=== PATIENT | female | born 1980 | race Two or more races ===

== ENCOUNTER 2020-07-05 22:15 | Inpatient (IN) | payer SELFPAY ==
[~2020-07-05] VITALS: Ht 149.9 cm; Wt 63.7 kg
[2020-07-05] MEDS ORDERED: ACETAMINOPHEN 325 MG TABLET. PO PRN (22:30)
[2020-07-05 22:49] LABS: BILIRUBIN,URINE NEGATIVE (NEG); CLARITY,URINE CLEAR; COLOR,URINE YELLOW; NITRITE,URINE NEGATIVE (NEG); PH,URINE 7.5 (<5.0-8.0); PROTEIN,URINE NEGATIVE (NEG-TRACE); UROBILINOGEN,URINE 0.2 mg/dL (0.2 mg/dL)
[2020-07-05 22:54] LABS: SQUAMOUS EPITHELIAL CELL,UR FEW /LPF
[2020-07-05 22:55] LABS: BACTERIA,URINE FEW /HPF (0-FEW); RBC,URINE 0 /HPF (0-2); WBC,URINE 0 /HPF (0-4)
[2020-07-06] VITALS (10 sets, daily range): BP systolic 75–114; BP diastolic 51–78
[2020-07-06] MEDS ORDERED: hydrOXYzine 25 MG TABLET PO PRN (02:15)
[2020-07-06] MEDS: IV RINGERS,LACTATED 1000ML 1,000 ML IV SCH ×7 (02:50→23:25)
[2020-07-06] MEDS ORDERED: IV RINGERS,LACTATED 1000ML 1,000 ML IV SCH (10:12)
[2020-07-06] MEDS ORDERED: LIDOCAINE 1% PF 30 ML VIAL. INJ PRN (10:15)
[2020-07-06] MEDS ORDERED: CITRIC ACID/SODIUM CITRATE 30 ML SOLUTION. PO ONE (10:15)
[2020-07-06] MEDS ORDERED: BUTORPHANOL 2 MG/ML VIAL. IVP PRN ×2 (10:15)
[2020-07-06] MEDS ORDERED: TERBUTALINE 1 MG/ML VIAL. SQ PRN (10:15)
[2020-07-06] MEDS ORDERED: OXYTOCIN 30 UNIT/500 ML PREMIX 500 ML IV PRN ×2 (10:15)
[2020-07-06] MEDS ORDERED: ONDANSETRON PF 4 MG/2 ML VIAL. IV PRN (10:30)
[2020-07-06] MEDS ORDERED: 0.9 % SODIUM CHLORIDE 10 ML DISP.SYRIN. IV PRN (10:30)
[2020-07-06] MEDS ORDERED: diphenhydrAMINE ORAL ELIXIR 12.5 MG/5 ML ML PO PRN (10:30)
[2020-07-06] MEDS ORDERED: TDaP (Adacel) per PROTOCOL. MC PRN ×2 (10:30→19:45)
[2020-07-06] MEDS ORDERED: MMR per PROTOCOL. MC PRN ×2 (10:30→19:45)
--- NOTE | 2020-07-06 10:31 | PDOC ---
GENERAL General: 40yrs old lady from [place] came here 3 weeks ago. Has had PN care at [facility]. Patient came in with Pain and contractions. Patient is Previous done in [facility]. ALLERGIES Allergies: Allergies Coded Allergies Type Severity Reaction Last Updated Verified No Known Drug Allergies 07/06/20 No MEDS Medications: Current Medications Medications (Trade) Dose Ordered Sig/Qi Route PRN Reason Start Time Stop Time Status Last Admin Dose Admin Ringer's Solution 1,000 ml @ 125 mls/hr Q8H IV 07/05/20 22:17 07/06/20 07:23 Hydroxyzine HCl (Atarax) 50 mg PRN Q6HRS PRN PO ITCHING 07/06/20 02:15 07/06/20 02:51 LAB Lab: Laboratory Tests Test 07/05/20 22:30 Urine Collection Type Unknown Urine Color Yellow Urine Clarity Clear Urine pH 7.5 (<5.0-8.0) Urine Specific [place] <=1.005 (1.000-1.030) Urine Protein Negative mg/dL (NEG-TRACE) Urine Glucose (UA) Negative mg/dL (NEG) Urine Ketones (Stick) Negative mg/dL (NEG) Urine Blood Negative (NEG) Urine Nitrite Negative (NEG) Urine Bilirubin Negative (NEG) Urine Urobilinogen Dipstick 0.2 mg/dL (0.2 mg/dL) Urine Leukocyte Esterase Negative (NEG) Urine RBC 0 /HPF (0-2) Urine WBC 0 /HPF (0-4) Urine Squamous Epithelial Cells Few /LPF Urine Bacteria Few /HPF (0-FEW) Urine Mucus Slight /LPF ASSESSMENT & PLAN A&P Vital signs stable. 38 weeks .Patient in Active Labor. Cervix Dilated to 3 cm. Vertex high. Explained to Patient about Repeat and Patient willing for Surgery at this time. Justifications for Admission Other Justification MELODY BOATENG MD Jul 06, 2020 10:31
[2020-07-06 10:42] LABS: BASO # 0.1 x10^3/uL (0.0-0.2); BASO % 1 % (0-3); EOS # 0.1 x10^3/uL (0.0-0.7); EOS % 0 % (0-3); HEMATOCRIT 36.3 % (36.0-47.0); HEMOGLOBIN 12.3 g/dL (12.0-15.5); LYMPH # 2.6 x10^3/uL (1.0-4.8); LYMPH % 19 % (24-48); MEAN CORPUSCULAR HEMOGLOBIN 29 pg (25-35); MEAN CORPUSCULAR HGB CONC 34 g/dL (31-37); MEAN CORPUSCULAR VOLUME 85 fL (79-100); MONO # 0.8 x10^3/uL (0.0-1.1); MONO % 6 % (0-9); NEUT # 9.9 x10^3/uL (1.8-7.7); NEUT % 74 % (31-73); PLATELET COUNT 228 x10^3/uL (140-400); RED BLOOD COUNT 4.27 x10^6/uL (3.50-5.40); RED CELL DISTRIBUTION WIDTH 14.5 % (11.5-14.5); WHITE BLOOD COUNT 13.4 x10^3/uL (4.0-11.0)
[2020-07-06] MEDS ORDERED: OXYTOCIN 10 UNIT/ML VIAL. ONE (10:45)
[2020-07-06] MEDS ORDERED: MORPHINE PF 10 MG/10 ML AMPUL. ONE (10:46)
[2020-07-06] MEDS ORDERED: fentaNYL PF VIAL 100 MCG/2 ML VIAL ONE (10:47)
[2020-07-06] MEDS ORDERED: ePHEDrine PF IN SALINE 50 MG/10 ML SYRINGE. IV ONE (12:20)
[2020-07-06] MEDS ORDERED: PHENYLEPHRINE in 0.9% NACL PF 1 MG/10 ML SYRINGE. IV ONE ×2 (12:20→16:50)
[2020-07-06] MEDS ORDERED: ONDANSETRON PF 4 MG/2 ML VIAL. ONE ×2 (12:29→19:16)
--- NOTE | 2020-07-06 13:14 | OP ---
DATE OF SURGERY: PREOPERATIVE DIAGNOSES: 2, para 1, premature labor, previous section. POSTOPERATIVE DIAGNOSES: 2, para 1, premature labor, previous section. OPERATION PERFORMED: Repeat lower segment . FINISH MENDER: Assisted by Dr. Gonzalez. OPERATIVE PROCEDURE: The patient was taken to the operating room and spinal block was given. The patient was kept in a dorsal supine position. Nguyen catheter introduced into bladder for continuous bladder drainage. Lower abdomen was prepped and draped in the usual manner. A Pfannenstiel incision was made over the area of the previous scar. Abdomen opened in layers and the bladder flap peritoneum was dissected. Bladder was pushed way down the lower segment of the uterus. An incision was made on the uterus and was extended on either side using index fingers. A live female infant weighing 5 pounds 3 ounce was delivered at 12:00 noon on 07/06/2020 with the score of 9, 9 and 9 without any problem. Cord was clamped and cut. Cord blood was taken. Placenta removed spontaneous. No hemorrhage noted. Uterus sutured in 2 layers using 0 chromic catgut sutures. Reperitonealization was done with continuous 0 chromic catgut sutures. Uterus placed in the abdominal cavity. All the blood clots in the pelvic cavity were removed. Abdomen closed in layers using continuous 0 chromic catgut sutures for the peritoneum, the muscle, the fascia, 3-0 plain continuous sutures applied for subcutaneous tissue and 3-0 Vicryl subcutaneous sutures were placed, a pressure dressing was given. The patient was sent to the recovery room in good condition. No complications encountered at time of the procedure. Estimated blood loss about 400 mL. Postoperative condition was stable. Baby was referred to water regulator and valve repairer for further care and treatment. Mother tolerated the delivery well. No complications at this time. MELODY BOATENG MD DR: MICHELLE/chasidy JOB#: [id number] / [id number]
[2020-07-06 14:37] LABS: HEMATOCRIT 23.6 % (36.0-47.0); HEMOGLOBIN 7.8 g/dL (12.0-15.5); RED BLOOD COUNT 2.75 x10^6/uL (3.50-5.40); RED CELL DISTRIBUTION WIDTH 14.6 % (11.5-14.5); WHITE BLOOD COUNT 19.4 x10^3/uL (4.0-11.0)
[2020-07-06] MEDS ORDERED: SUCCINYLCHOLINE 200 MG/10 ML VIAL. ONE (16:49)
[2020-07-06] MEDS ORDERED: KETAMINE HCL IN NACL, ISO-OSM 50 MG/5 ML SYRINGE ONE (16:49)
[2020-07-06] MEDS ORDERED: PROPOFOL 10 MG/ML (20ML) VIAL. IV ONE (16:50)
[2020-07-06] MEDS ORDERED: LIDOCAINE 2% PF 5 ML VIAL. ONE (16:50)
[2020-07-06] MEDS ORDERED: ETOMIDATE 20 MG/10 ML VIAL. IV ONE (16:55)
[2020-07-06] MEDS: FERROUS SULFATE 325 MG TABLET. PO SCH (17:00)
[2020-07-06] MEDS ORDERED: MIDAZOLAM HCL/PF 2 MG/2 ML VIAL. ONE ×2 (17:07)
[2020-07-06] MEDS ORDERED: GLYCOPYRROLATE 1 MG/5 ML VIAL. ONE (17:08)
[2020-07-06] MEDS ORDERED: SEVOFLURANE > 120 MINUTES. IH ONE (17:09)
--- NOTE | 2020-07-06 17:26 | PDOC ---
GENERAL General: Patient is Post Patient has abdominal pain. No vaginal bleeding. VITAL SIGNS Vital Signs/I&O: Vital Signs Date Time Temp Pulse Resp B/P (MAP) Pulse Ox O2 Delivery O2 Flow Rate FiO2 07/06/20 17:15 99.4 116 20 103/60 99.4 ALLERGIES Allergies: Allergies Coded Allergies Type Severity Reaction Last Updated Verified No Known Drug Allergies 07/06/20 No MEDS Medications: Current Medications Medications (Trade) Dose Ordered Sig/Qi Route PRN Reason Start Time Stop Time Status Last Admin Dose Admin Ringer's Solution 1,000 ml @ 125 mls/hr Q8H IV 07/05/20 22:17 07/06/20 14:42 Hydroxyzine HCl (Atarax) 50 mg PRN Q6HRS PRN PO ITCHING 07/06/20 02:15 07/06/20 02:51 Cefazolin Sodium/ Dextrose 50 ml @ 100 mls/hr 1X ONCE IV 07/06/20 10:15 07/06/20 10:44 DC 07/06/20 11:03 Citric Acid/ Sodium Citrate (Bicitra) 30 ml 1X ONCE PO 07/06/20 10:15 07/06/20 10:25 DC 07/06/20 11:04 LAB Lab: Laboratory Tests Test 07/05/20 22:30 07/06/20 02:40 07/06/20 10:21 07/06/20 11:10 Urine Collection Type Unknown Urine Color Yellow Urine Clarity Clear Urine pH 7.5 (<5.0-8.0) Urine Specific [place] <=1.005 (1.000-1.030) Urine Protein Negative mg/dL (NEG-TRACE) Urine Glucose (UA) Negative mg/dL (NEG) Urine Ketones (Stick) Negative mg/dL (NEG) Urine Blood Negative (NEG) Urine Nitrite Negative (NEG) Urine Bilirubin Negative (NEG) Urine Urobilinogen Dipstick 0.2 mg/dL (0.2 mg/dL) Urine Leukocyte Esterase Negative (NEG) Urine RBC 0 /HPF (0-2) Urine WBC 0 /HPF (0-4) Urine Squamous Epithelial Cells Few /LPF Urine Bacteria Few /HPF (0-FEW) Urine Mucus Slight /LPF White Blood Count 13.4 x10^3/uL (4.0-11.0) H Red Blood Count 4.27 x10^6/uL (3.50-5.40) Hemoglobin 12.3 g/dL (12.0-15.5) Hematocrit 36.3 % (36.0-47.0) Mean Corpuscular Volume 85 fL (79-100) Mean Corpuscular Hemoglobin 29 pg (25-35) Mean Corpuscular Hemoglobin Concent 34 g/dL (31-37) Red Cell Distribution Width 14.5 % (11.5-14.5) Platelet Count 228 x10^3/uL (140-400) Neutrophils (%) (Auto) 74 % (31-73) H Lymphocytes (%) (Auto) 19 % (24-48) L Monocytes (%) (Auto) 6 % (0-9) Eosinophils (%) (Auto) 0 % (0-3) Basophils (%) (Auto) 1 % (0-3) Neutrophils # (Auto) 9.9 x10^3/uL (1.8-7.7) H Lymphocytes # (Auto) 2.6 x10^3/uL (1.0-4.8) Monocytes # (Auto) 0.8 x10^3/uL (0.0-1.1) Eosinophils # (Auto) 0.1 x10^3/uL (0.0-0.7) Basophils # (Auto) 0.1 x10^3/uL (0.0-0.2) SARS-CoV-2 Antigen (Rapid) Negative (NEGATIVE) Treponema pallidum Antibody Nonreactive (Nonreactive) Hepatitis B Surface Antigen Nonreactive (Nonreactive) HIV (1&2) Antibody Screen Nonreactive (Nonreactive) Test 07/06/20 14:28 White Blood Count 19.4 x10^3/uL (4.0-11.0) H Red Blood Count 2.75 x10^6/uL (3.50-5.40) L Hemoglobin 7.8 g/dL (12.0-15.5) #L Hematocrit 23.6 % (36.0-47.0) L Mean Corpuscular Volume 86 fL (79-100) Mean Corpuscular Hemoglobin 28 pg (25-35) Mean Corpuscular Hemoglobin Concent 33 g/dL (31-37) Red Cell Distribution Width 14.6 % (11.5-14.5) H Platelet Count 195 x10^3/uL (140-400) Laboratory Tests 07/06/20 02:40 07/06/20 14:28 ASSESSMENT & PLAN A&P BP70/60 Pulse 112 Hg 7.8 2 units Blood ordered. Abdomen Distended . Explained to patient about Postop Bleed in Abdomen. Will do Laparotomy. Discussed With Dr Marcus who will be assisting for Surgery. Justifications for Admission Other Justification MELODY BOATENG MD Jul 06, 2020 17:26
[2020-07-06] MEDS ORDERED: ceFAZolin SODIUM IV Push 1 GM VIAL. IVP ONE (17:56)
[2020-07-06] MEDS ORDERED: ROCURONIUM 50 MG/5 ML VIAL. ONE (18:00)
[2020-07-06] MEDS ORDERED: ALBUMIN HUMAN 5% 500 ML IV ONE ×2 (18:20→18:45)
[2020-07-06] MEDS ORDERED: METHYLENE BLUE 0.5% 10ml AMPULE. ONE (18:20)
[2020-07-06] MEDS ORDERED: NEOSTIGMINE METHYLSULFATE 5 MG/5 ML SYRINGE. ONE (18:44)
--- NOTE | 2020-07-06 19:30 | PDOC ---
GENERAL General: Patient taken for Laparotomy VITAL SIGNS Vital Signs/I&O: Vital Signs Date Time Temp Pulse Resp B/P (MAP) Pulse Ox O2 Delivery O2 Flow Rate FiO2 07/06/20 17:15 99.4 116 20 103/60 99.4 ALLERGIES Allergies: Allergies Coded Allergies Type Severity Reaction Last Updated Verified No Known Drug Allergies 07/06/20 No MEDS Medications: Current Medications Medications (Trade) Dose Ordered Sig/Qi Route PRN Reason Start Time Stop Time Status Last Admin Dose Admin Ringer's Solution 1,000 ml @ 125 mls/hr Q8H IV 07/05/20 22:17 07/06/20 14:42 Hydroxyzine HCl (Atarax) 50 mg PRN Q6HRS PRN PO ITCHING 07/06/20 02:15 07/06/20 02:51 Cefazolin Sodium/ Dextrose 50 ml @ 100 mls/hr 1X ONCE IV 07/06/20 10:15 07/06/20 10:44 DC 07/06/20 11:03 Citric Acid/ Sodium Citrate (Bicitra) 30 ml 1X ONCE PO 07/06/20 10:15 07/06/20 10:25 DC 07/06/20 11:04 LAB Lab: Laboratory Tests Test 07/05/20 22:30 07/06/20 02:40 07/06/20 10:21 07/06/20 11:10 Urine Collection Type Unknown Urine Color Yellow Urine Clarity Clear Urine pH 7.5 (<5.0-8.0) Urine Specific [place] <=1.005 (1.000-1.030) Urine Protein Negative mg/dL (NEG-TRACE) Urine Glucose (UA) Negative mg/dL (NEG) Urine Ketones (Stick) Negative mg/dL (NEG) Urine Blood Negative (NEG) Urine Nitrite Negative (NEG) Urine Bilirubin Negative (NEG) Urine Urobilinogen Dipstick 0.2 mg/dL (0.2 mg/dL) Urine Leukocyte Esterase Negative (NEG) Urine RBC 0 /HPF (0-2) Urine WBC 0 /HPF (0-4) Urine Squamous Epithelial Cells Few /LPF Urine Bacteria Few /HPF (0-FEW) Urine Mucus Slight /LPF White Blood Count 13.4 x10^3/uL (4.0-11.0) H Red Blood Count 4.27 x10^6/uL (3.50-5.40) Hemoglobin 12.3 g/dL (12.0-15.5) Hematocrit 36.3 % (36.0-47.0) Mean Corpuscular Volume 85 fL (79-100) Mean Corpuscular Hemoglobin 29 pg (25-35) Mean Corpuscular Hemoglobin Concent 34 g/dL (31-37) Red Cell Distribution Width 14.5 % (11.5-14.5) Platelet Count 228 x10^3/uL (140-400) Neutrophils (%) (Auto) 74 % (31-73) H Lymphocytes (%) (Auto) 19 % (24-48) L Monocytes (%) (Auto) 6 % (0-9) Eosinophils (%) (Auto) 0 % (0-3) Basophils (%) (Auto) 1 % (0-3) Neutrophils # (Auto) 9.9 x10^3/uL (1.8-7.7) H Lymphocytes # (Auto) 2.6 x10^3/uL (1.0-4.8) Monocytes # (Auto) 0.8 x10^3/uL (0.0-1.1) Eosinophils # (Auto) 0.1 x10^3/uL (0.0-0.7) Basophils # (Auto) 0.1 x10^3/uL (0.0-0.2) SARS-CoV-2 Antigen (Rapid) Negative (NEGATIVE) Treponema pallidum Antibody Nonreactive (Nonreactive) Hepatitis B Surface Antigen Nonreactive (Nonreactive) HIV (1&2) Antibody Screen Nonreactive (Nonreactive) Test 07/06/20 14:28 White Blood Count 19.4 x10^3/uL (4.0-11.0) H Red Blood Count 2.75 x10^6/uL (3.50-5.40) L Hemoglobin 7.8 g/dL (12.0-15.5) #L Hematocrit 23.6 % (36.0-47.0) L Mean Corpuscular Volume 86 fL (79-100) Mean Corpuscular Hemoglobin 28 pg (25-35) Mean Corpuscular Hemoglobin Concent 33 g/dL (31-37) Red Cell Distribution Width 14.6 % (11.5-14.5) H Platelet Count 195 x10^3/uL (140-400) Laboratory Tests 07/06/20 02:40 07/06/20 14:28 ASSESSMENT & PLAN A&P Under GA Laparotomy Right side Salpingectomy and Uterine Artery Ligation and Evacuation of Blood Clots Right side Broad Ligament area and Suturing done. EBL 1500cc. Assisted by . Justifications for Admission Other Justification MELODY BOATENG MD Jul 06, 2020 19:30
[2020-07-06] MEDS ORDERED: ONDANSETRON PF 4 MG/2 ML VIAL. IVP PRN (19:45)
[2020-07-06 20:14] LABS: ART BE ISTAT -7 mmol/L (0-3); ART GLUC ISTAT 118 mg/dL (70-99); ART HCO3 ISTAT 20 mmol/L (21-28); ART HCT ISTAT 23 % (36-40); ART HGB ISTAT 7.8 g/dL (12-15); ART ION CA ISTAT 1.04 mmol/L (1.13-1.32); ART K ISTAT 3.5 mmol/L (3.5-5.0); ART NA ISTAT 142 mmol/L (135-145); ART PCO2 ISTAT 38 mmHg (35-45); ART PH ISTAT 7.32 (7.35-7.45); ART PO2 ISTAT 217 mmHg (75-100); ART SAT O2 SAT 100 % (95-99); ART TCO2 ISTAT 21 mmol/L (21-32); CORRECTED PCO2 38 mmHg; CORRECTED PH 7.32; CORRECTED PO2 218 mmHg
--- NOTE | 2020-07-06 21:30 | OP ---
DATE OF SURGERY: PREOPERATIVE DIAGNOSIS: Post section bleeding and hematoma. POSTOPERATIVE DIAGNOSIS: Broad ligament hematoma. ROCK SPLITTER: César Marcus MD DESCRIPTION OF PROCEDURE: The patient was taken to the operating room under general anesthesia. The patient was placed in a dorsal supine position. The patient received 4 units of blood prior to the surgery and Nguyen catheter introduced into the bladder for continuous bladder drainage. Lower abdomen was prepped and draped in the usual manner. Incision was made over the area of the previous scar. Abdomen opened in layers and visualization of the pelvic structures revealed uterus showing some small fibroids and a large hematoma on the right side broad ligament area. Right ovary appears normal. The right tube was dilated and the hematoma extending downwards towards the cul-de-sac on the right side below the broad ligament. The left side tube, ovary, and broad ligament intact and normal. Uterine incision and suturing appears intact. No bleeding from the incision area. The right side fallopian tube was excised as there was bleeding right beneath it and suturing was done. The mesosalpinx area was also sutured first and evacuation of the hematoma was done and extended a little deeper and this was evacuated as well and the suturing was done. The uterine artery on the right side was ligated first and then all the evacuation of the blood clots done and suturing of the broad ligament area. After the suturing, there was no active bleeding seen and also there was reduction in the size of the hematoma and there is no bleeding encountered on the left side at all and it is not extending anywhere else and there is no other active bleeding seen. Hence, at the sutured pedicle area was applied and after this, abdomen was closed in layers using continuous 0 chromic catgut sutures for the peritoneum, the muscle, and the fascia, 3-0 Vicryl continuous sutures applied for subcutaneous tissue, and a pressure dressing was given and the patient was sent to the recovery room in good condition. The estimated blood loss during the time of surgery was about 1500 mL. Postoperative condition is stable. The vital signs are stable at this time. The needle, instrument, and sponge count were correct at the end of the procedure. She will be sent to ICU for observation for 24 hours and then further treatment. MELODY BOATENG MD DR: MICHELLE/chasidy JOB#: [id number] / [id number]
--- NOTE | 2020-07-06 22:00 | NUR ---
Patient admitted from PACU. Patient transferred to ICU bed, placed on monitor, arterial line connected with no problems. Patient on room air, VSS. Patient last unit of blood just finished flushing in. Surgical dressing on abdomen has small amount of shadowing- marked with pen. No vaginal or any other bleeding found upon head to toe assessment. Cytology Laboratory Manager used for patient. Understands POC, does not have any complaints at this time. Able to orient to call light and room surroundings. Patient called own family member on personal cell phone due to language barriers. OB nurse brought chart and belongings down. *An additional unit was on hand in PACU, given to this RN with orders to transfuse if Hgb just drawn was 7.5 or less. Hgb came back at 10.1. Blood bank was called, since the unit was going to at 2200 it was discarded in red bag.
[2020-07-07] VITALS (15 sets, daily range): BP systolic 89–114; BP diastolic 49–60
[2020-07-07 00:06] LABS: HEMATOCRIT 27.5 % (36.0-47.0); HEMOGLOBIN 9.3 g/dL (12.0-15.5); RED BLOOD COUNT 3.2 x10^6/uL (3.50-5.40); RED CELL DISTRIBUTION WIDTH 14.4 % (11.5-14.5); WHITE BLOOD COUNT 13.7 x10^3/uL (4.0-11.0)
[2020-07-07] MEDS: IV RINGERS,LACTATED 1000ML 1,000 ML IV SCH ×6 (02:12→21:22)
[2020-07-07 04:28] LABS: HEMATOCRIT 26.4 % (36.0-47.0)
--- NOTE | 2020-07-07 05:00 | NUR ---
Efra 0400 HH from Paty with no complications. A few minutes after drawing labs, paty wave was flat. Attempted to flush line, could no longer get any blood return. Paty repositioned whilst trying to get blood return and flush. Patient then complained of pain in the area. Paty discontinued, pressure held, bandage applied over site.
[2020-07-07] MEDS: FERROUS SULFATE 325 MG TABLET. PO SCH ×2 (08:00→16:53)
--- NOTE | 2020-07-07 08:48 | PDOC ---
GENERAL General: Patient alert Has fever this am. Abdomen soft. Not much vaginal Bleeding. VITAL SIGNS Vital Signs/I&O: Vital Signs Date Time Temp Pulse Resp B/P (MAP) Pulse Ox O2 Delivery O2 Flow Rate FiO2 07/07/20 08:00 Room Air 07/07/20 06:00 75 16 97/49 (65) 95 07/07/20 04:00 98.7 98.7 07/06/20 20:21 2 I & O 07/06/20 07/06/20 07/07/20 15:00 23:00 07:00 Intake Total 711 ml 713 ml Output Total 1450 ml 855 ml Balance -739 ml -142 ml ALLERGIES Allergies: Allergies Coded Allergies Type Severity Reaction Last Updated Verified No Known Drug Allergies 07/06/20 No MEDS Medications: Current Medications Medications (Trade) Dose Ordered Sig/Qi Route PRN Reason Start Time Stop Time Status Last Admin Dose Admin Ringer's Solution 1,000 ml @ 125 mls/hr Q8H IV 07/06/20 10:12 07/07/20 07:12 Cefazolin Sodium/ Dextrose 50 ml @ 100 mls/hr 1X ONCE IV 07/06/20 10:15 07/06/20 10:44 DC 07/06/20 11:03 Citric Acid/ Sodium Citrate (Bicitra) 30 ml 1X ONCE PO 07/06/20 10:15 07/06/20 10:25 DC 07/06/20 11:04 Ringer's Solution 1,000 ml @ 125 mls/hr Q8H IV 07/06/20 10:12 07/06/20 23:25 LAB Lab: Laboratory Tests Test 07/06/20 10:21 07/06/20 11:10 07/06/20 14:28 07/06/20 19:23 SARS-CoV-2 Antigen (Rapid) Negative (NEGATIVE) Treponema pallidum Antibody Nonreactive (Nonreactive) Hepatitis B Surface Antigen Nonreactive (Nonreactive) HIV (1&2) Antibody Screen Nonreactive (Nonreactive) White Blood Count 19.4 x10^3/uL (4.0-11.0) H Red Blood Count 2.75 x10^6/uL (3.50-5.40) L Hemoglobin 7.8 g/dL (12.0-15.5) #L Hematocrit 23.6 % (36.0-47.0) L Mean Corpuscular Volume 86 fL (79-100) Mean Corpuscular Hemoglobin 28 pg (25-35) Mean Corpuscular Hemoglobin Concent 33 g/dL (31-37) Red Cell Distribution Width 14.6 % (11.5-14.5) H Platelet Count 195 x10^3/uL (140-400) POC Hemoglobin (Calculated) 7.8 g/dL (12-15) L POC Hematocrit 23 % (36-40) L POC Arterial pH 7.32 (7.35-7.45) L Arterial Blood pH (Temp corrected) 7.32 POC Arterial pCO2 38 mmHg (35-45) Arterial Blood pCO2 (Temp correct) 38 mmHg POC Arterial pO2 217 mmHg (75-100) H Arterial Blood pO2 (Temp corrected) 218 mmHg POC Arterial HCO3 20 mmol/L (21-28) L POC Arterial Total CO2 21 mmol/L (21-32) Arterial Bld O2 Saturation (Measur) 100 % (95-99) H POC Arterial Blood Base Excess -7 mmol/L (0-3) L POC FiO2 56.0 POC Sodium 142 mmol/L (135-145) POC Potassium 3.5 mmol/L (3.5-5.0) Glucose Level 118 mg/dL (70-99) H POC Ionized Calcium (José) 1.04 mmol/L (1.13-1.32) L Test 07/06/20 20:30 07/07/20 00:01 07/07/20 04:20 Hemoglobin 10.1 g/dL (12.0-15.5) L 9.3 g/dL (12.0-15.5) L 9.0 g/dL (12.0-15.5) L White Blood Count 13.7 x10^3/uL (4.0-11.0) H Red Blood Count 3.20 x10^6/uL (3.50-5.40) L Hematocrit 27.5 % (36.0-47.0) L 26.4 % (36.0-47.0) L Mean Corpuscular Volume 86 fL (79-100) Mean Corpuscular Hemoglobin 29 pg (25-35) Mean Corpuscular Hemoglobin Concent 34 g/dL (31-37) 34 g/dL (31-37) Red Cell Distribution Width 14.4 % (11.5-14.5) Platelet Count 104 x10^3/uL (140-400) L Laboratory Tests 07/06/20 14:28 07/06/20 20:30 07/07/20 00:01 07/07/20 04:20 Laboratory Tests 07/06/20 19:23 ASSESSMENT & PLAN A&P Lochia normal. Abdomen soft. Has abdominal Pain. Patient on Antibiotics. Justifications for Admission Other Justification MELODY BOATENG MD Jul 07, 2020 08:48
--- NOTE | 2020-07-07 10:16 | NUR ---
SS following for discharge planning. SS reviewed pt chart and discussed with pt RN. Pt is from home and is currently on room air. Pt had pre[facility]linh care at [facility]. Pt is self pay. Med Assist following. Pt had and is currently on IV Cefazolin. Pt has surgery on 07/06/2020 due to bleeding. Pt to transfer out of ICU today. Discharge plan is to home when medically ready. SS will continue to follow.
[2020-07-07] MEDS: ceFAZolin SODIUM IV Push 1 GM VIAL. IVP SCH ×2 (10:31→15:23)
[2020-07-07 11:49] LABS: CALCIUM 7.5 mg/dL (8.5-10.1); CREATININE 0.8 mg/dL (0.6-1.0); GFR 80.3; POTASSIUM 3.5 mmol/L (3.5-5.1)
[2020-07-07] MEDS: MORPHINE SULFATE 10 MG/ML VIAL. IV PRN ×3 (12:53→21:22)
[2020-07-07 13:06] LABS: BASO % 0 % (0-3); EOS % 0 % (0-3); HEMATOCRIT 26.8 % (36.0-47.0); HEMOGLOBIN 9.2 g/dL (12.0-15.5); LYMPH % 15 % (24-48); MEAN CORPUSCULAR HEMOGLOBIN 30 pg (25-35); MEAN CORPUSCULAR HGB CONC 34 g/dL (31-37); MEAN CORPUSCULAR VOLUME 86 fL (79-100); MONO # 0.7 x10^3/uL (0.0-1.1); MONO % 5 % (0-9); NEUT # 10.9 x10^3/uL (1.8-7.7); NEUT % 80 % (31-73); PLATELET COUNT 102 x10^3/uL (140-400); RED BLOOD COUNT 3.11 x10^6/uL (3.50-5.40); WHITE BLOOD COUNT 13.6 x10^3/uL (4.0-11.0)
[2020-07-07 14:03] LABS: ART BE ISTAT -5 mmol/L (0-3); ART GLUC ISTAT 119 mg/dL (70-99); ART HCO3 ISTAT 19 mmol/L (21-28); ART HCT ISTAT 33 % (36-40); ART HGB ISTAT 11.2 g/dL (12-15); ART K ISTAT 3.9 mmol/L (3.5-5.0); ART NA ISTAT 137 mmol/L (135-145); ART PCO2 ISTAT 28 mmHg (35-45); ART PH ISTAT 7.44 (7.35-7.45); ART PO2 ISTAT 301 mmHg (75-100); ART SAT O2 SAT 100 % (95-99); ART TCO2 ISTAT 20 mmol/L (21-32); CORRECTED PCO2 28 mmHg; CORRECTED PH 7.43; CORRECTED PO2 302 mmHg
[2020-07-07] MEDS ORDERED: SIMETHICONE 80 MG TAB.CHEW PO PRN (15:30)
[2020-07-07] MEDS: SIMETHICONE 80 MG TAB.CHEW PO PRN (15:41)
[2020-07-07] MEDS ORDERED: BISACODYL 10 MG SUPP.RECT. PR PRN (16:30)
[2020-07-07] MEDS: DOCUSATE SODIUM 100 MG CAPSULE. PO PRN (16:38)
[2020-07-07] MEDS: IBUPROFEN 400 MG TABLET. PO PRN (16:38)
[2020-07-07] MEDS ORDERED: DIPH,PERTUSS(ACELL),TET VAC/PF 0.5 ML SYRINGE. VAX IM ONE (19:00)
[2020-07-08] MEDS: SIMETHICONE 80 MG TAB.CHEW PO PRN ×3 (01:36→16:34)
[2020-07-08 06:00] VITALS: BP 92/52
[2020-07-08] MEDS: MORPHINE SULFATE 10 MG/ML VIAL. IV PRN (06:14)
[2020-07-08] MEDS: FERROUS SULFATE 325 MG TABLET. PO SCH ×2 (07:35→16:34)
[2020-07-08] MEDS: DOCUSATE SODIUM 100 MG CAPSULE. PO PRN ×2 (07:35→21:41)
[2020-07-08] MEDS: IBUPROFEN 400 MG TABLET. PO PRN ×2 (07:36→16:34)
[2020-07-08] MEDS: MAG HYDROX/ALUMINUM HYD/SIMETH 30 ML ORAL.SUSP PO PRN ×3 (07:36→18:30)
--- NOTE | 2020-07-08 09:26 | PDOC ---
GENERAL General: Patient feeling batter. Passing gas. No fever. VITAL SIGNS Vital Signs/I&O: Vital Signs Date Time Temp Pulse Resp B/P (MAP) Pulse Ox O2 Delivery O2 Flow Rate FiO2 07/08/20 06:14 96 Room Air 2.0 07/08/20 06:00 98.6 93 24 92/52 (65) 98.6 I & O 07/07/20 07/07/20 07/08/20 15:00 23:00 07:00 Intake Total 430 ml Output Total 785 ml 1675 ml 2000 ml Balance -355 ml -1675 ml -2000 ml ALLERGIES Allergies: Allergies Coded Allergies Type Severity Reaction Last Updated Verified No Known Drug Allergies 07/06/20 No MEDS Medications: Current Medications Medications (Trade) Dose Ordered Sig/Qi Route PRN Reason Start Time Stop Time Status Last Admin Dose Admin Simethicone (Gas-X) 80 mg PRN AFTMEALHC PRN PO GAS / BLOATING 07/07/20 15:15 07/08/20 01:36 Diphtheria/ Tetanus/Acell Pertussis (ADACEL TDap SYRINGE) 0.5 ml ONCE ONCE VAX IM 07/07/20 19:00 07/07/20 19:01 DC 07/08/20 06:44 LAB Lab: Laboratory Tests Test 07/07/20 11:25 White Blood Count 13.6 x10^3/uL (4.0-11.0) H Red Blood Count 3.11 x10^6/uL (3.50-5.40) L Hemoglobin 9.2 g/dL (12.0-15.5) L Hematocrit 26.8 % (36.0-47.0) L Mean Corpuscular Volume 86 fL (79-100) Mean Corpuscular Hemoglobin 30 pg (25-35) Mean Corpuscular Hemoglobin Concent 34 g/dL (31-37) Red Cell Distribution Width 15.0 % (11.5-14.5) H Platelet Count 102 x10^3/uL (140-400) L Neutrophils (%) (Auto) 80 % (31-73) H Lymphocytes (%) (Auto) 15 % (24-48) L Monocytes (%) (Auto) 5 % (0-9) Eosinophils (%) (Auto) 0 % (0-3) Basophils (%) (Auto) 0 % (0-3) Neutrophils # (Auto) 10.9 x10^3/uL (1.8-7.7) H Lymphocytes # (Auto) 2.0 x10^3/uL (1.0-4.8) Monocytes # (Auto) 0.7 x10^3/uL (0.0-1.1) Eosinophils # (Auto) 0.0 x10^3/uL (0.0-0.7) Basophils # (Auto) 0.0 x10^3/uL (0.0-0.2) Sodium Level 141 mmol/L (136-145) Potassium Level 3.5 mmol/L (3.5-5.1) Chloride Level 109 mmol/L (98-107) H Carbon Dioxide Level 27 mmol/L (21-32) Anion Gap 5 (6-14) L Blood Urea Nitrogen 10 mg/dL (7-20) Creatinine 0.8 mg/dL (0.6-1.0) Estimated GFR (Cockcroft-Gault) 80.3 Glucose Level 76 mg/dL (70-99) Calcium Level 7.5 mg/dL (8.5-10.1) L Laboratory Tests 07/07/20 11:25 Laboratory Tests 07/07/20 11:25 ASSESSMENT & PLAN A&P Vital signs stable. Abdomen feels soft. Lochia normal. Good urine output. Patient able to eat. Justifications for Admission Other Justification MELODY BOATENG MD Jul 08, 2020 09:26
[2020-07-08 09:45] LABS: BASO % 0 % (0-3); EOS # 0.2 x10^3/uL (0.0-0.7); EOS % 1 % (0-3); HEMATOCRIT 25.9 % (36.0-47.0); HEMOGLOBIN 8.8 g/dL (12.0-15.5); LYMPH # 1.4 x10^3/uL (1.0-4.8); LYMPH % 12 % (24-48); MEAN CORPUSCULAR HEMOGLOBIN 29 pg (25-35); MEAN CORPUSCULAR HGB CONC 34 g/dL (31-37); MEAN CORPUSCULAR VOLUME 87 fL (79-100); MONO # 0.5 x10^3/uL (0.0-1.1); MONO % 4 % (0-9); NEUT # 10.4 x10^3/uL (1.8-7.7); NEUT % 83 % (31-73); PLATELET COUNT 121 x10^3/uL (140-400); WHITE BLOOD COUNT 12.5 x10^3/uL (4.0-11.0)
[2020-07-08 10:12] LABS: CALCIUM 8.2 mg/dL (8.5-10.1); CREATININE 0.8 mg/dL (0.6-1.0); GFR 80.3; POTASSIUM 3.2 mmol/L (3.5-5.1)
[2020-07-08 10:53] VITALS: BP 96/65
[2020-07-08] MEDS: oxyCODONE/APAP 5/325 1 TAB TABLET PO PRN ×2 (12:45→18:31)
[2020-07-08] MEDS: CLINDAMYCIN HCL 150 MG CAPSULE. PO SCH (12:45)
[2020-07-08 15:40] VITALS: BP 97/57
[2020-07-08] MEDS ORDERED: MAGNESIUM HYDROXIDE 2,400 MG/30 ML ORAL.SUSP. PO PRN (20:00)
[2020-07-08 21:38] VITALS: BP 100/61
[2020-07-08 21:59] VITALS: BP 100/61
[2020-07-09 05:59] VITALS: BP 102/63
[2020-07-09] MEDS: DOCUSATE SODIUM 100 MG CAPSULE. PO PRN (08:02)
[2020-07-09] MEDS: IBUPROFEN 400 MG TABLET. PO PRN (08:02)
[2020-07-09] MEDS: oxyCODONE/APAP 5/325 1 TAB TABLET PO PRN (08:02)
[2020-07-09] MEDS: FERROUS SULFATE 325 MG TABLET. PO SCH (08:02)
--- NOTE | 2020-07-09 09:37 | PDOC ---
GENERAL General: Patient doing Well. No Problems. VITAL SIGNS Vital Signs/I&O: Vital Signs Date Time Temp Pulse Resp B/P (MAP) Pulse Ox O2 Delivery O2 Flow Rate FiO2 07/09/20 08:02 18 07/09/20 05:59 99.0 80 102/63 (76) 95 Room Air 99.0 07/08/20 21:56 2.0 I & O 07/08/20 07/08/20 07/09/20 15:00 23:00 07:00 Intake Total 1120 ml 480 ml Output Total 1050 ml Balance -1050 ml 1120 ml 480 ml ALLERGIES Allergies: Allergies Coded Allergies Type Severity Reaction Last Updated Verified No Known Drug Allergies 07/06/20 No MEDS Medications: Current Medications Medications (Trade) Dose Ordered Sig/Qi Route PRN Reason Start Time Stop Time Status Last Admin Dose Admin Clindamycin HCl (Cleocin) 300 mg Q8HRS PO 07/08/20 14:00 07/08/20 12:45 Oxycodone/ Acetaminophen (Percocet 5/325) 1 tab PRN Q4HRS PRN PO PAIN 07/08/20 10:30 07/09/20 08:02 ASSESSMENT & PLAN A&P Vital signs stable. Abdomen soft. Uterus Firm. Lochia normal. Justifications for Admission Other Justification MELODY BOATENG MD Jul 09, 2020 09:37
[2020-07-09 10:39] LABS: HEMOGLOBIN 9.2 g/dL (12.0-15.5)
[2020-07-09] MEDS: CLINDAMYCIN HCL 150 MG CAPSULE. PO SCH (14:53)
--- NOTE | 2020-07-09 15:35 | NUR ---
Discharge instructions given to pt via WISE[employer] director patient financial services [phone]. Pt verbalized understanding. Pt discharged home.
[2020-07-09 15:53] VITALS: BP 123/75
[2020-07-09] MEDS ORDERED: LACTOBACILLUS RHAMNOSUS GG 1 CAPSULE. PO SCH (21:00)
--- NOTE | 2020-07-11 14:07 | PATHOLOGY ---
[facility] Accession Number: [id number] . 01 Material submitted: . fallopian tube - RIGHT SIDE FALLOPIAN TUBE. Modifiers: right . 01 Clinical history: . BLEEDING FOLLOWING . 02 Diagnosis: Fallopian tube, right salpingectomy: - Paratubal hemorrhage/hematoma. (JPM:[facility] 07/11/2020) P 07/11/2020 1037 Local . 02 Electronically signed: . German Denise MD, Pathologist NPI- [id number] . 01 Gross description: . The specimen is received in formalin, labeled "Alycia Renata, right side fallopian tube". Received is a fimbriated fallopian tube measuring 6.3 cm in length by up to 1.0 cm in diameter. The attached soft tissue shows a large amount of edema. Sectioning reveals a patent lumen. The specimen is submitted representatively in cassettes A1 and A2. ([facility]; 07/08/2020) QA/[facility] 07/08/2020 1624 Local . 02 Pathologist provided ICD-10: N83.6 . 02 CPT . 910267 Specimen Comment: A courtesy copy of this report has been sent to [phone] Specimen Comment: Report sent to Performed at: 01 [facility] [address], [place], [place] [id number] MD Oracio Berrios MD Phone: [phone] Performed at: 02 [facility] [address] [place], [place] [id number] MD German Denise MD Phone: [phone]
--- NOTE | 2020-07-12 15:35 | HP ---
ADMIT DATE: 07/05/2020 CHIEF COMPLAINT AND HISTORY OF PRESENT ILLNESS: This patient is a 40-year-old female who is a 2, para 1, about 38 weeks' . The patient has had care at [facility] and came into the hospital because of having contractions and she has had a previous and admitted to the hospital in active labor. PHYSICAL EXAMINATION: VITAL SIGNS: Reveals vital signs being stable. HEAD, EYES, NOSE, THROAT: Within normal limits. LUNGS: Clear. HEART: Sounds regular sinus rhythm. ABDOMEN: About 38 weeks' . heart tones are 146 per minute, vertex presenting. PELVIC: Shows external genitalia being normal. Cervix about 2-3 cm dilated, vertex presenting, membranes intact and the presenting part is high. EXTREMITIES: No edema of feet. IMPRESSION: 2, para 1, previous section and labor. PLAN: Repeat , which has been explained to the patient at this time. MELODY BOATENG MD DR: MICHELLE/chasidy JOB#: [id number] / [id number]
== END 2020-07-09 16:00 | disposition home or self-care (01) | DRG 784 ==
LOC: 3 SO LND 22:15 → EDBD 22:15 → OBSVTOIN 22:15 → 1 WEST ICU 07-06 20:28 → 3 NORTH 07-07 15:01
PROVIDERS: ADMIT Obstetrics & Gynecology; ATTEND Obstetrics & Gynecology
PROC: 0UB50ZZ Excision of Right Fallopian Tube, Open Approach (ICD-10-PCS; 2020-07-06)
PROC: 04LE3ZT Occlusion of Right Uterine Artery, Percutaneous Approach (ICD-10-PCS; 2020-07-06)
PROC: 0U9 Female Reproductive System, Drainage (ICD-10-PCS; 2020-07-06)
PROC: 30233N1 Transfusion of Nonautologous Red Blood Cells into Peripheral Vein, Percutaneous Approach (ICD-10-PCS; 2020-07-06)
PROC: 10D00Z1 Extraction of Products of Conception, Low, Open Approach (ICD-10-PCS; principal; 2020-07-06 18:00)
DX: O34.211 Maternal care for low transverse scar from previous cesarean delivery (principal); N99.840 Postprocedural hematoma of a genitourinary system organ or structure following a genitourinary system procedure; Z20.828 Contact with and (suspected) exposure to other viral communicable diseases; D25.9 Leiomyoma of uterus, unspecified; O34.13 Maternal care for benign tumor of corpus uteri, third trimester; Z37.0 Single live birth; Z3A.38 38 weeks gestation of pregnancy; Y83.9 Surgical procedure, unspecified as the cause of abnormal reaction of the patient, or of later complication, without mention of misadventure at the time of the procedure
CPT/HCPCS: 36415; 80048; 81001; 82803; 85014; 85018; 85025; 85027; 86592; 86703; 86762; 86850; 86900; 86901; 86920; 87340; 87426; 88304; 90471; 90715; J0330; J0690; J2250; J2270; J2274; J2370; J2405; J2590; J2704; J2710; J3010; J3490; J7030; J7120; P9016; P9045; Q9968; G0378; U0003-CS